=== PATIENT | male | born 2000 | race Caucasian/White ===

== ENCOUNTER 2023-04-05 00:32 | Emergency (ER) | payer BC ==
[~2023-04-05] VITALS: Ht 182.9 cm; Wt 102.1 kg
[2023-04-05 00:48] VITALS: BP_SYST 116; PULSE 68; RESP 18; TEMP 98.5; O2SAT 97
[2023-04-05 00:57] VITALS: BP_SYST 116; PULSE 68; RESP 18; TEMP 98.5; O2SAT 97
== END 2023-04-05 00:58 | disposition home or self-care (01) ==
LOC: SED 00:32
DX: T16.1XXA Foreign body in right ear, initial encounter (principal); Z79.899 Other long term (current) drug therapy; W45.8XXA Other foreign body or object entering through skin, initial encounter; Y93.89 Activity, other specified; Y92.89 Other specified places as the place of occurrence of the external cause; Y99.8 Other external cause status
CPT/HCPCS: 99284

== ENCOUNTER 2023-05-30 12:43 | Emergency (ER) | payer BC ==
[~2023-05-30] VITALS: Ht 182.9 cm; Wt 102.1 kg
[2023-05-30 12:43] VITALS: BP_SYST 137; PULSE 87; RESP 18; TEMP 97.7; O2SAT 97
[2023-05-30] MEDS ORDERED: DIPHTH,PERTUSS(ACELL),TET VAC 0.5 ML VIAL (Tdap) I.M. ONE (14:15)
[2023-05-30] MEDS ORDERED: BACITRACIN 1 GM OINT TP ONE (14:15)
[2023-05-30] MEDS ORDERED: LIDOCAINE 1% 10 MG/ML, 20 ML MDV INJ ONE (14:15)
[2023-05-30] MEDS ORDERED: CLIN-22 PO (14:36)
[2023-05-30] MEDS ORDERED: IBUP-1971 PO (14:36)
[2023-05-30 14:38] LABS: BASOPHILS # (AUTO) 0.1 K/uL (0.0-0.2); BASOPHILS % (AUTO) 0.7 % (0.0-2.0); EOSINOPHILS # (AUTO) 0.1 K/uL (0.0-0.4); EOSINOPHILS % (AUTO) 1.1 % (0.0-4.0); HEMOGLOBIN 15.3 g/dL (14.0-18.0); LYMPHOCYTES % (AUTO) 22.4 % (20.5-51.5); MEAN CORPUSCULAR HEMOGLOBIN 28 pg (27-31); MEAN CORPUSCULAR HGB CONC 33 % (32-36); MEAN CORPUSCULAR VOLUME 83 fL (79.0-98.0); MONOCYTES # (AUTO) 0.6 K/uL (0.0-1.0); MONOCYTES % (AUTO) 6.6 % (1.7-9.3); NEUTROPHILS % (AUTO) 69.2 % (40.0-70.0); PLATELET COUNT (AUTO) 280 K/uL (130-430); RED BLOOD CELL COUNT(AUTO) 5.54 MIL/uL (4.2-6.2); RED CELL DISTRIBUTION WIDTH 12.6 % (9.0-15.0); WHITE BLOOD COUNT (AUTO) 8.7 K/uL (4.8-10.8)
[2023-05-30] MEDS ORDERED: IBUPROFEN 800 MG TABLET PO ONE (14:45)
[2023-05-30] MEDS ORDERED: CLINDAMYCIN HCL 150 MG CAPSULE PO ONE (14:45)
[2023-05-30 14:47] LABS: ACETONE, SERUM NEGATIVE (NEGATIVE)
[2023-05-30 14:49] LABS: ANION GAP 10 (5-15); CALCIUM 9.2 mg/dL (8.4-11.0); CARBON DIOXIDE 28 mmol/L (23-29); CHLORIDE 101 mmol/L (98-107); CREATININE 0.82 mg/dL (0.55-1.30); GFR AFRICAN AMERICAN 153 mL/min (>90); GFR NON AFRICAN-AMERICAN 126 mL/min (>90); GLUCOSE 239 mg/dL (74-106); POTASSIUM 4.4 mmol/L (3.5-5.1); SODIUM SERUM 139 mmol/L (136-145); UREA NITROGEN, BLOOD 10 mg/dL (8-21)
[2023-05-30 15:04] LABS: ALANINE AMINOTRANSFERASE 18 U/L (12-78); ALBUMIN 4.2 g/dL (3.4-4.8); ASPARTATE AMINOTRANSFERASE 5 U/L (10-37); TOTAL BILIRUBIN 0.4 mg/dL (0.0-1.0); TOTAL PROTEIN, SERUM 7.8 g/dL (6.4-8.3)
[2023-05-30 15:18] VITALS: BP_SYST 160; PULSE 76; RESP 16; TEMP 98.7; O2SAT 99
== END 2023-05-30 15:15 | disposition home or self-care (01) ==
LOC: SED 12:43
DX: L02.214 Cutaneous abscess of groin (principal); R19.04 Left lower quadrant abdominal swelling, mass and lump; E11.9 Type 2 diabetes mellitus without complications; Z79.899 Other long term (current) drug therapy
CPT/HCPCS: 99283; 10060; 80053; 82009; 85025; 36415; 90715; 90471; 82397; J2001

== ENCOUNTER 2023-06-01 13:36 | Emergency (ER) | payer BC ==
[~2023-06-01] VITALS: Ht 182.9 cm; Wt 102.1 kg
[2023-06-01 13:36] VITALS: BP_SYST 115; PULSE 83; RESP 18; TEMP 97.1; O2SAT 98
[~2023-06-01 13:36] MED LIST: CLIN-22 PO; IBUP-1971 PO
[2023-06-01] MEDS ORDERED: LIDOCAINE 2%, 20 ML MDV INJ ONE (14:30)
[2023-06-01] MEDS ORDERED: LIDOCAINE 2%, 20 ML MDV ONE (14:33)
[2023-06-01 19:30] VITALS: BP_SYST 115; PULSE 83; RESP 18; TEMP 97.1; O2SAT 98
== END 2023-06-01 19:30 | disposition home or self-care (01) ==
LOC: SED 13:36
DX: Z48.00 Encounter for change or removal of nonsurgical wound dressing (principal); L02.214 Cutaneous abscess of groin; E11.9 Type 2 diabetes mellitus without complications; Z79.899 Other long term (current) drug therapy
CPT/HCPCS: 99282; 12001; J2001

== ENCOUNTER 2023-07-10 22:04 | Emergency (ER) | payer BC ==
[~2023-07-10] VITALS: Ht 182.9 cm; Wt 113.4 kg
[2023-07-10 22:23] VITALS: BP_SYST 134; PULSE 74; RESP 20; TEMP 98.2; O2SAT 98
[2023-07-10] MEDS ORDERED: LIDOCAINE 1% 10 MG/ML, 20 ML MDV INJ ONE (23:15)
[2023-07-10] MEDS ORDERED: CEPH-548 PO (23:30)
[2023-07-10] MEDS ORDERED: NAPR-1172 PO (23:30)
[2023-07-10 23:35] VITALS: BP_SYST 134; PULSE 76; RESP 18; TEMP 98.2; O2SAT 98
== END 2023-07-10 23:35 | disposition home or self-care (01) ==
LOC: SED 22:04
DX: K61.1 Rectal abscess (principal); E11.9 Type 2 diabetes mellitus without complications; Z79.899 Other long term (current) drug therapy
CPT/HCPCS: 46050; 99284; J2001

== ENCOUNTER 2023-07-13 16:58 | Emergency (ER) | payer BC ==
[~2023-07-13] VITALS: Ht 182.9 cm; Wt 113.4 kg
[~2023-07-13 16:58] MED LIST changes: +CEPH-548 PO; +NAPR-1172 PO
[2023-07-13 17:17] VITALS: BP_SYST 118; PULSE 78; RESP 18; TEMP 97.5; O2SAT 98
== END 2023-07-13 17:48 | disposition left against medical advice (07) ==
LOC: SED 16:58
DX: Z48.00 Encounter for change or removal of nonsurgical wound dressing (principal); Z53.21 Procedure and treatment not carried out due to patient leaving prior to being seen by health care provider
CPT/HCPCS: 99281

== ENCOUNTER 2023-07-14 17:43 | Emergency (ER) | payer BC ==
[~2023-07-14] VITALS: Ht 182.9 cm; Wt 113.4 kg
[2023-07-14 18:27] VITALS: BP_SYST 118; PULSE 86; RESP 16; TEMP 97.6; O2SAT 97
[2023-07-14 19:41] VITALS: BP_SYST 116; PULSE 79; RESP 19; O2SAT 98
== END 2023-07-14 19:41 | disposition home or self-care (01) ==
LOC: SED 17:43
DX: L05.91 Pilonidal cyst without abscess (principal); Z48.00 Encounter for change or removal of nonsurgical wound dressing; E11.9 Type 2 diabetes mellitus without complications; Z79.899 Other long term (current) drug therapy
CPT/HCPCS: 99281

== ENCOUNTER 2023-08-18 20:11 | Emergency (ER) | payer BC ==
[~2023-08-18] VITALS: Ht 182.9 cm; Wt 113.4 kg
[2023-08-18 20:28] VITALS: BP_SYST 123; PULSE 73; RESP 18; TEMP 97.5; O2SAT 99
[2023-08-18] MEDS ORDERED: IBUP-1969 PO (21:31)
[2023-08-18 21:37] VITALS: BP_SYST 121; PULSE 71; RESP 18; TEMP 97.6; O2SAT 99
== END 2023-08-18 21:37 | disposition home or self-care (01) ==
LOC: SED 20:11
DX: S63.501A Unspecified sprain of right wrist, initial encounter (principal); E11.9 Type 2 diabetes mellitus without complications; Z79.899 Other long term (current) drug therapy; W01.0XXA Fall on same level from slipping, tripping and stumbling without subsequent striking against object, initial encounter; Y93.89 Activity, other specified; Y92.89 Other specified places as the place of occurrence of the external cause; Y99.8 Other external cause status
CPT/HCPCS: 99283

== ENCOUNTER 2023-11-18 17:59 | Emergency (ER) | payer BC ==
[~2023-11-18] VITALS: Ht 182.9 cm; Wt 102.1 kg
[~2023-11-18 17:59] MED LIST changes: +IBUP-1969 PO
[2023-11-18] MEDS ORDERED: DOXY100C5 PO (18:19)
[2023-11-18] MEDS ORDERED: CHLO237L21 TP (18:19)
[2023-11-18 18:25] VITALS: BP_SYST 133; PULSE 81; RESP 18; TEMP 98.4; O2SAT 97
[2023-11-18 19:10] VITALS: BP_SYST 133; PULSE 81; RESP 18; TEMP 98.4; O2SAT 97
== END 2023-11-18 19:09 | disposition home or self-care (01) ==
LOC: SED 17:59
DX: L02.224 Furuncle of groin (principal); Z79.899 Other long term (current) drug therapy
CPT/HCPCS: 99283

== ENCOUNTER 2023-12-18 05:52 | Emergency (ER) | payer BC ==
[~2023-12-18] VITALS: Ht 182.9 cm; Wt 108.9 kg
[~2023-12-18 05:52] MED LIST changes: +CHLO237L21 TP; +DOXY100C5 PO
[2023-12-18 06:16] VITALS: BP_SYST 119; PULSE 66; RESP 18; TEMP 97.8; O2SAT 100
[2023-12-18] MEDS ORDERED: BACITRACIN 1 GM OINT TP ONE (06:30)
[2023-12-18] MEDS ORDERED: LIDOCAINE 1% 10 MG/ML, 20 ML MDV INJ ONE (06:30)
[2023-12-18] MEDS ORDERED: CLIN-142 PO (07:03)
[2023-12-18 07:16] VITALS: BP_SYST 119; PULSE 66; RESP 18; TEMP 97.8; O2SAT 100
== END 2023-12-18 07:17 | disposition home or self-care (01) ==
LOC: SED 05:52
DX: L02.214 Cutaneous abscess of groin (principal); E11.9 Type 2 diabetes mellitus without complications; Z79.899 Other long term (current) drug therapy
CPT/HCPCS: 99283; J2001

== ENCOUNTER 2023-12-20 20:00 | Emergency (ER) | payer BC ==
[~2023-12-20] VITALS: Ht 182.9 cm; Wt 106.6 kg
[~2023-12-20 20:00] MED LIST changes: +CLIN-142 PO
[2023-12-20 20:09] VITALS: BP_SYST 138; PULSE 67; RESP 16; TEMP 98.1; O2SAT 99
== END 2023-12-20 20:28 | disposition home or self-care (01) ==
LOC: SED 20:00
DX: Z48.00 Encounter for change or removal of nonsurgical wound dressing (principal); E11.9 Type 2 diabetes mellitus without complications; Z79.899 Other long term (current) drug therapy
CPT/HCPCS: 99281